=== PATIENT | male | born 1950 | race Caucasian/White ===

== ENCOUNTER 2022-03-14 05:55 | Outpatient (CLI) | payer SELFPAY | END 2022-03-14 23:59 | disposition critical access hospital (66) | LOC: EMS 05:55 | DX: S38.1XXA Crushing injury of abdomen, lower back, and pelvis, initial encounter (principal); M79.605 Pain in left leg; M79.604 Pain in right leg; S01.81XA Laceration without foreign body of other part of head, initial encounter; W20.8XXA Other cause of strike by thrown, projected or falling object, initial encounter; Y92.023 Bedroom in mobile home as the place of occurrence of the external cause | CPT/HCPCS: A0425; A0427 ==

== ENCOUNTER 2022-03-14 06:20 | Emergency (ER) | payer SELFPAY ==
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
[2022-03-14] MEDS: SODIUM CHLORIDE 0.9% 1,000 ML IV STA (07:25)
[2022-03-14] MEDS: HYDROmorphone 1 MG/ML CARPUJECT IVP STA (07:27)
[2022-03-14] MEDS ORDERED: iohexoL-300 100 ML VIAL ONE (07:28)
[2022-03-14] MEDS: KETOROLAC 15 MG/ML VIAL IVP STA (07:30)
[2022-03-14 07:32] LABS: BASOPHILS # (AUTO) 0.1 10^3/uL (0.0-0.1); BASOPHILS % (AUTO) 0.3 %; EOSINOPHILS % (AUTO) 0.1 %; HGB - HEMOGLOBIN 14.1 g/dL (14.0-18.0); LYMPHOCYTES % (AUTO) 5.6 %; MEAN CORPUSCULAR HEMOGLOBIN 29.6 pg (27.0-31.0); MEAN CORPUSCULAR VOLUME 92.4 fL (80.0-94.0); MEAN PLATELET VOLUME 9.6 fL (7.4-11.4); MONOCYTES # (AUTO) 1.1 10^3/uL (0.0-1.0); MONOCYTES % (AUTO) 6.3 %; NEUTROPHILS # (AUTO) 15.3 10^3/uL (1.5-6.6); PLT - PLATELET COUNT 207 10^3/uL (130-450); RED BLOOD COUNT 4.76 10^6/uL (4.70-6.10); RED CELL DISTRIBUTION WIDTH 13.6 % (12.0-15.0); WHITE BLOOD COUNT 17.5 x10^3/uL (4.8-10.8)
[2022-03-14 07:48] LABS: ALBUMIN 3.7 g/dL (3.2-5.5); ALBUMIN/GLOBULIN RATIO 1.2 (1.0-2.2); BILIRUBIN,TOTAL 0.5 mg/dL (0.2-1.0); MAGNESIUM 2.2 mg/dL (1.7-2.8); POTASSIUM 3.7 mmol/L (3.5-5.0); TOTAL PROTEIN 6.8 g/dL (6.7-8.2)
[2022-03-14] MEDS: iohexoL-300 100 ML VIAL IVP ONE (08:19)
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
[2022-03-14] MEDS ORDERED: SODIUM CHLORIDE 0.9% 1,000 ML IV STA (10:05)
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
[2022-03-14 10:20] VITALS: BP 123/82
[2022-03-14] MEDS ORDERED: LIDOCAINE 2% URO-JET 5 ML SYRINGE UR STA (10:21)
[2022-03-14 10:23] LABS: HCT - HEMATOCRIT 41.7 % (42.0-52.0); HGB - HEMOGLOBIN 13.5 g/dL (14.0-18.0)
[2022-03-14] MEDS: HYDROmorphone 0.5 MG/0.5 ML SYRINGE IVP STA (10:45)
== END 2022-03-14 10:47 | disposition short-term general hospital (02) ==
LOC: EDUNIT# → ED 06:20
DX: S32.810A Multiple fractures of pelvis with stable disruption of pelvic ring, initial encounter for closed fracture (principal); S22.42XA Multiple fractures of ribs, left side, initial encounter for closed fracture; S00.81XA Abrasion of other part of head, initial encounter; W20.8XXA Other cause of strike by thrown, projected or falling object, initial encounter; Z20.822 Contact with and (suspected) exposure to COVID-19
CPT/HCPCS: 36415; 70450; 71250; 72125; 74177; 80053; 82550; 83690; 83735; 85014; 85018; 85025; 86850; 86900; 86901; 87635; 96374; 96375; 96376; 99285; 99291; J1170; Q9967